=== PATIENT | female | born 1930 | race Caucasian/White ===

== ENCOUNTER → 2016-06-27 | Outpatient (CLI) | payer MEDICARE, BC ==
[~2016-06-27] MED LIST: ACTOS30 MG PO; ARTHRITIS PAIN325 MG PO; ASPIRIN 81M81 MG/TA2 PO; BENTYL 10MG10 MG/CAP PO; CALCIUM + D 6001 TA1 PO; CALCIUM 500 + D1 TA1 PO; COZAAR 50MG50 MG/TAB PO; DIOVAN 80MG80 MG PO; ERY-TAB250 M1 PO; FIBERCON500 MG PO; GLUCOPHAGE XR500 M1 PO; GLUCOTROL 5M5 MG/TAB PO; LISINOPRIL20 MG PO; METFORMIN ER500 MG PO; MOBIC 7.5MG7.5 MG PO; MOBIC7.5 MG PO; PERCR 7.5 PO; PREDNISONE20 MG PO; PRILOSEC 20MG20 MG PO; SURFAK 240240 MG/CAP PO; TYLENOL 325MG325 MG PO; TYLENOL 500MG500 MG PO; ZANTAC 150MG T150 MG PO; ZESTRIL 20MG TA20 MG PO
== END ==
LOC: SUN.DIA 09:40
DX: E11.9 Type 2 diabetes mellitus without complications (principal); E11.40 Type 2 diabetes mellitus with diabetic neuropathy, unspecified; Z79.84 Long term (current) use of oral hypoglycemic drugs; Z71.3 Dietary counseling and surveillance; I10 Essential (primary) hypertension

== ENCOUNTER → 2016-08-04 | Outpatient (REF) | LOC: ZLAB.WCH 12:44 | DX: Z01.89 Encounter for other specified special examinations (principal) ==

== ENCOUNTER → 2016-08-11 | Outpatient (REF) | LOC: ZLAB.WCH 15:55 | DX: Z01.89 Encounter for other specified special examinations (principal) ==

== ENCOUNTER → 2016-08-15 | Outpatient (REF) | LOC: ZLAB.WCH 15:01 | DX: Z01.89 Encounter for other specified special examinations (principal) ==

== ENCOUNTER → 2016-10-09 | Outpatient (REF) | LOC: ZLAB.WCH 20:15 | DX: Z01.89 Encounter for other specified special examinations (principal) ==

== ENCOUNTER → 2017-01-01 | Outpatient (CLI) | payer MEDICARE, BC | LOC: SUN.DIA 12-25 12:25 | DX: E11.40 Type 2 diabetes mellitus with diabetic neuropathy, unspecified (principal); I10 Essential (primary) hypertension; Z68.24 Body mass index [BMI] 24.0-24.9, adult; Z71.3 Dietary counseling and surveillance | CPT/HCPCS: G0108 ==

== ENCOUNTER → 2017-02-14 | Outpatient (CLI) | payer MEDICARE, BC | LOC: COL.RAD 07:25 | DX: R14.0 Abdominal distension (gaseous) (principal); M48.07 Spinal stenosis, lumbosacral region; R19.7 Diarrhea, unspecified; S33.140A Subluxation of L4/L5 lumbar vertebra, initial encounter; K58.9 Irritable bowel syndrome, unspecified; R09.81 Nasal congestion; R12 Heartburn; K21.9 Gastro-esophageal reflux disease without esophagitis; R14.2 Eructation; R10.9 Unspecified abdominal pain; Z90.49 Acquired absence of other specified parts of digestive tract; Z90.710 Acquired absence of both cervix and uterus | CPT/HCPCS: Q9967 ==

== ENCOUNTER → 2017-03-06 | Outpatient (REF) ==
[2017-03-06 18:32] LABS: TOTAL IRON BINDING CAPACITY 305 ug/dL (265-497)
== END ==
LOC: ZLAB.WCH 18:01
PROVIDERS: Nurse Practitioner Family
DX: Z01.89 Encounter for other specified special examinations (principal)

== ENCOUNTER → 2017-03-26 | Outpatient (CLI) | payer MEDICARE, BC | LOC: SUN.DIA 11:38 | DX: E11.40 Type 2 diabetes mellitus with diabetic neuropathy, unspecified (principal); I10 Essential (primary) hypertension; Z68.24 Body mass index [BMI] 24.0-24.9, adult; Z71.3 Dietary counseling and surveillance | CPT/HCPCS: G0108 ==

== ENCOUNTER → 2017-03-30 | Outpatient (REF) ==
[2017-03-30 16:45] LABS: THYROID STIMULATING HORMONE 3.05 uIU/mL (0.465-4.680)
== END ==
LOC: ZLAB.WCH 15:42
PROVIDERS: Internal Medicine
DX: Z01.89 Encounter for other specified special examinations (principal)

== ENCOUNTER → 2017-04-03 | Outpatient (CLI) | payer MEDICARE, BC | LOC: SUN.DIA 09:26 | DX: E11.40 Type 2 diabetes mellitus with diabetic neuropathy, unspecified (principal); I10 Essential (primary) hypertension; Z68.24 Body mass index [BMI] 24.0-24.9, adult; Z71.3 Dietary counseling and surveillance ==

== ENCOUNTER → 2017-05-16 | Outpatient (CLI) | payer MEDICARE, BC | LOC: SUN.DIA 08:57 | DX: E11.40 Type 2 diabetes mellitus with diabetic neuropathy, unspecified (principal); I10 Essential (primary) hypertension; Z68.23 Body mass index [BMI] 23.0-23.9, adult; Z71.3 Dietary counseling and surveillance ==

== ENCOUNTER → 2017-07-10 | Outpatient (REF) | LOC: ZLAB.WCH 18:17 | DX: Z01.89 Encounter for other specified special examinations (principal) ==

== ENCOUNTER → 2017-09-20 | Outpatient (CLI) | payer MEDICARE, BC | LOC: SUN.DIA 09:28 | DX: E11.40 Type 2 diabetes mellitus with diabetic neuropathy, unspecified (principal); I10 Essential (primary) hypertension; Z68.23 Body mass index [BMI] 23.0-23.9, adult; Z71.3 Dietary counseling and surveillance ==

== ENCOUNTER → 2017-11-30 | Outpatient (REF) | LOC: ZLAB.WCH 15:15 | DX: Z01.89 Encounter for other specified special examinations (principal) ==

== ENCOUNTER → 2018-03-21 | Outpatient (CLI) | payer MEDICARE, BC | LOC: SUN.DIA 09:14 | DX: E11.40 Type 2 diabetes mellitus with diabetic neuropathy, unspecified (principal); I10 Essential (primary) hypertension ==

== ENCOUNTER → 2018-03-28 | Outpatient (REF) | LOC: ZLAB.WCH 16:18 | DX: Z01.89 Encounter for other specified special examinations (principal) ==

== ENCOUNTER → 2018-06-17 | Outpatient (REF) | LOC: ZLAB.WCH 15:46 | DX: Z01.89 Encounter for other specified special examinations (principal) ==